=== PATIENT | female | born 1935 | race African-American/Black ===

== ENCOUNTER → 2017-05-17 | Day surgery (SDC) | payer MEDICARE, OTHER ==
[~2017-05-17] MED LIST: ASPIR 8181 MG PO; CO Q-10100 MG PO; HYDROCODONE-AP1 EAC6 PO; LEVOXYL137 MCG PO; LISINOPRIL10 MG PO; MIRALAX17 GM PO; NORVASC5 M1 PO; PROSOURCE PROT7.5 GM PO; PROTONIX40 M1 PO; SIMBRINZA 1%-0.28 ML OPHTHALMIC; TESSALON PERLE100 MG PO; TIMOLOL GL0.5 %/5 M1 OPHTHALMIC; VITAMIN B-12500 MCG PO; VITAMIN D1000 UNI1 PO
--- NOTE | 2017-05-17 16:26 | EKG ---
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1935 Requested By: Alejandro Morales Order Number: [id number] Reading MD: Preston Hines Measurements Intervals [place] Rate: 43 P: -11 CA: 178 QRS: -30 QRSD: 100 T: 17 QT: 529 QTc: 448 Interpretive Statements Sinus bradycardia Left axis deviation RSR' in V1 or V2, probably normal variant Consider anterior infarct No previous ECG available for comparison Electronically Signed On 05-17-2017 16:26:37 CDT by Preston Hines [email or web address] <ELECTRONICALLY SIGNED> By: Preston Hines MD, [facility] 05/17/17 1626 1141 1141 Preston Hines MD, FAC /EPI
--- NOTE | 2017-05-18 09:19 | OP ---
[address] [address] OPERATIVE REPORT Name: LEIGH ROQUE Room: [facility]#: [id number] Admission: 05/17/17 Attend Phys: Cedrick Alvarenga DO Discharge: Date of : 35 Report #: [id number] THIS REPORT FOR: //name// CC: Cedrick ALATORRE Physician staff DATE OF SERVICE: 05/17/2017 PREOPERATIVE DIAGNOSIS: End-stage renal disease. POSTOPERATIVE DIAGNOSIS: End-stage renal disease. OPERATION: Creation of left thigh arteriovenous graft. SURGEON: Cedrick Alvarenga DO. GASTROENTEROLOGIST: JOB Modi. ANESTHESIA: LMA. ESTIMATED BLOOD LOSS: 75 mL. FLUIDS: 400 mL crystalloid. URINE OUTPUT: None. SPECIMENS: None. IMPLANTS: A 4 x 7 tapered Acuseal graft in the left groin. COMPLICATIONS: None. FINDINGS: Left common femoral artery was soft with minimal atherosclerotic disease suitable for access. She had an excellent thrill after completion of the graft. She had palpable dorsalis pedis pulses on the left as well after completion of the graft. CLINICAL HISTORY: The patient is an 82-year-old woman with end-stage renal disease, currently dialyzing through right IJ tunneled dialysis catheter. She has had multiple upper extremity access placements and subsequent interventions and revisions; these have all failed. She is in need of a new access in order to remove the catheter. She only has lower extremity options at this point. DETAILS OF PROCEDURE: After informed consent was obtained, the patient was taken to the operating room and placed on the OR bed in supine position. She [facility] [address] [place] [address] OPERATIVE REPORT Name: LEIGH ROQUE Room: [facility]#: [id number] Admission: 05/17/17 Attend Phys: Cedrick Alvarenga DO Discharge: Date of : 35 Report #: [id number] was administered LMA anesthesia by the anesthesia team. Left groin was prepped and draped in usual sterile fashion. Full timeout was performed identifying correct patient and procedure. Next, a transverse incision was made in the left groin. Dissection was carried down through skin and subcutaneous tissue both sharply and electrocautery. The femoral sheath was entered. The left common femoral artery was identified, was circumferentially mobilized and controlled with Silastic vessel loop in Escalera fashion. I then dissected out the left superficial femoral artery and multiple profunda side branches. These were all controlled with Silastic vessel loops in Escalera fashion. I then dissected out the left common femoral artery and controlled this with Silastic vessel loops in Escalera fashion, both proximally and distally as well. I then prepped the graft and then created a subcutaneous tunnel making a counterincision in the left anterolateral thigh. This was tunneled approximately 3 mm deep to the skin. At this point, I then tailored the graft lengths. I then administered 5000 units of intravenous heparin. This allowed to circulate for 3 minutes. I then occluded the common deep and superficial femoral arteries and made an arteriotomy extended with Escalera scissors, performed end-to-side anastomosis of the graft in the artery with running 5-0 Prolene suture. I then released the common femoral artery clamp and flushed into the graft. I then restored flow down the deep femoral artery and then next on the superficial femoral artery. The graft was then flushed with heparinized saline and re-occluded. I then tailored the vein theodore. I then occluded the left common femoral vein and vein branches. I then made a venotomy and extended with Escalera scissors. I then again performed end-to-side anastomosis with running 5-0 Prolene suture. Prior to completion of the suture line, the graft was released and deaired and then backbled the vein, flushed the anastomosis with heparinized saline and completed the anastomosis. At this point, there was excellent thrill within the graft and then, I administered 40 mg of protamine to partially reverse the heparin. Once hemostasis was ensured in the groin, it was closed in layers with 2-0 and 3-0 Vicryl, 4-0 Monocryl in the skin. A counterincision was closed with 3-0 Vicryl and 4-0 Monocryl. Dermabond was applied. All sponge, sharp and instrument counts reported correct x 2. She tolerated the procedure well and was transferred back to recovery room in stable condition. Again, she had a palpable dorsalis pedis pulse at completion. <ELECTRONICALLY SIGNED> By: Isaac Cabezas DO 05/18/17 0919 1524 [id number] Alvarenga DO /nt
== END | disposition home or self-care (01) ==
LOC: M.SUR 05-08 07:55
DX: N18.6 End stage renal disease (principal); Z88.0 Allergy status to penicillin; Z88.8 Allergy status to other drugs, medicaments and biological substances; Z91.040 Latex allergy status; Z79.82 Long term (current) use of aspirin; Z79.899 Other long term (current) drug therapy; Z79.891 Long term (current) use of opiate analgesic